=== PATIENT | female | born 1940 | race Caucasian/White ===

== ENCOUNTER 2017-03-05 11:12 | Day surgery (SDC) | payer OTHER, MEDICARE ==
[~2017-03-05] VITALS: Ht 162.6 cm; Wt 74.7 kg
[2017-03-05] MEDS ORDERED: LACTATED RINGERS 1,000 ML IV SCH ×2 (11:38→11:44)
[2017-03-05] MEDS ORDERED: RIZA10TA20 PO (11:47)
[2017-03-05] MEDS ORDERED: ATEN50TA41 PO (11:47)
[2017-03-05] MEDS ORDERED: PREG300C PO (11:47)
[2017-03-05] MEDS ORDERED: FENTANYL PF 250 MCG/5ML ONE (11:50)
[2017-03-05 12:05] VITALS: BP 108/73
[2017-03-05] MEDS ORDERED: EPINEPHRINE 1 MG/ML, 1ML ONE (12:24)
[2017-03-05] MEDS ORDERED: BUPIVACAINE/PF 0.25% ONE (12:24)
[2017-03-05] MEDS ORDERED: MIDAZOLAM 1 MG/ML, 2ML ONE ×2 (12:29)
[2017-03-05 12:38] LABS: BLOOD UREA NITROGEN 23 mg/dL (7-18)
[2017-03-05] MEDS ORDERED: EPHEDRINE 50 MG/ML, 1ML ONE (12:41)
[2017-03-05] MEDS ORDERED: ROCURONIUM 10MG/ML,5ML ONE (12:41)
[2017-03-05] MEDS ORDERED: MIDAZOLAM 1 MG/ML, 5ML ONE (12:41)
[2017-03-05 12:44] LABS: ASPARTATE AMINO TRANSFERASE 14 U/L (15-37)
[2017-03-05] MEDS ORDERED: GLYCOPYRROLATE 0.2MG/1ML, 5ML ONE (13:04)
[2017-03-05] MEDS ORDERED: PROPOFOL 10 MG/ML, 20ML ONE (13:04)
[2017-03-05] MEDS ORDERED: SUCCINYLCHOLINE 20 MG/ML, 10ML ONE (13:04)
[2017-03-05] MEDS ORDERED: DEXAMETHASONE 4 MG/ML, 1ML ONE (13:04)
[2017-03-05] MEDS ORDERED: ONDANSETRON 2MG/ML, 2ML ONE (13:04)
[2017-03-05] MEDS ORDERED: NEOSTIGMINE 1 MG/ML, 10ML ONE (13:04)
[2017-03-05] MEDS ORDERED: ROCURONIUM 10 MG/ML ONE (13:04)
[2017-03-05] MEDS ORDERED: CEFAZOLIN 1,000 MG ONE (13:04)
[2017-03-05] MEDS ORDERED: OXYcodone 5 MG/5 ML ORAL.SOL UDC ONE (13:22)
[2017-03-05] MEDS ORDERED: ACETAMINOPHEN 325 MG TABLET ONE (13:22)
[2017-03-05] MEDS ORDERED: ACETAMINOPHEN 650 MG/20.3 ML UDC ONE (13:23)
[2017-03-05] MEDS ORDERED: hydrALAzine 20 MG/ML, 1ML IV PRN (13:30)
[2017-03-05] MEDS ORDERED: OXYcodone 5 MG/5 ML ORAL.SOL UDC PO PRN (13:30)
[2017-03-05] MEDS ORDERED: PROMETHAZINE 25 MG/ML, 1ML IV PRN (13:30)
[2017-03-05] MEDS ORDERED: ALBUTEROL SULFATE 2.5 MG/3 ML NPPB PRN (13:30)
[2017-03-05] MEDS ORDERED: FENTANYL PF 100 MCG/2ML IV PRN (13:30)
[2017-03-05] MEDS ORDERED: ACETAMINOPHEN 325 MG TABLET PO PRN (13:30)
[2017-03-05] MEDS ORDERED: METOPROLOL 1 MG/ML, 5ML IV PRN (13:30)
[2017-03-05] MEDS ORDERED: HYDROmorphone 1 MG/ML, 1ML IV PRN (13:30)
== END 2017-03-05 15:50 | disposition home or self-care (01) ==
LOC: OUT 11:12
PROVIDERS: ATTEND Surgery
DX: K80.10 Calculus of gallbladder with chronic cholecystitis without obstruction (principal); G43.909 Migraine, unspecified, not intractable, without status migrainosus; Z88.5 Allergy status to narcotic agent; Z88.8 Allergy status to other drugs, medicaments and biological substances; Z98.890 Other specified postprocedural states
CPT/HCPCS: 36415; 47562; 80053; 88304; 93005; J0171; J0690; J2250; J2405; J2704; J2710; J3010; J3490; J7120; J1100; J0330